=== PATIENT | male | born 1955 | race Caucasian/White ===

== ENCOUNTER → 2018-12-17 | Outpatient (CLI) | payer BC ==
--- NOTE | 2018-12-17 15:22 | Diagnostic Imaging Report ---
Examination: MRI SPINE CERVICAL WO CONTRAST History: Neck pain with radiation to the right shoulder and scapula. Comparison studies: None Technique: Sagittal T1, T2 and IR, axial T2 and axial gradient echo intravenous contrast: None Findings: Alignment: Normal lordosis. No scoliosis. Cervicomedullary junction: No abnormalities. Patent foramen magnum. Soft tissues: No T2 hyperintense inflammatory changes. Spinal cord: Normal in size and signal from the foramen magnum through T1. Vertebrae: No fractures, infection or neoplasm. Degenerative changes: C1-C2: No abnormalities. C2-C3: Bilateral uncovertebral and facet arthropathy result in mild right and moderate left neural foraminal narrowing. No canal stenosis. C3-C4: Diffuse disc osteophyte complex and bilateral uncovertebral and facet arthropathy result in moderate right and mild left neural foraminal narrowing and mild canal stenosis. C4-C5: Diffuse disc osteophyte complex and bilateral uncovertebral and facet arthropathy result in moderate bilateral neural foraminal narrowing and mild canal stenosis. C5-C6: Asymmetric to the right disc osteophyte complex and bilateral uncovertebral arthropathy result in moderate right and mild left neural foraminal narrowing and mild canal stenosis. C6-C7: Diffuse disc osteophyte complex and bilateral uncovertebral arthropathy result in mild bilateral neural foraminal narrowing and mild canal stenosis. C7-T1: No abnormalities. IMPRESSION: 1. 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 2. Moderate right foraminal narrowing at C3-C4 and C5-C6, moderate bilateral foraminal narrowing at C4-C5. Signed by: Dr. Patricia Ribera M.D. on 12/17/2018 3:19 PM
== END ==
LOC: MRI 13:34
PROVIDERS: ATTEND Specialist
DX: M54.12 Radiculopathy, cervical region (principal)
CPT/HCPCS: 72141